=== PATIENT | female | born 1970 | race Caucasian/White ===

== ENCOUNTER 2018-07-04 15:58 | Emergency (ER) | payer OTHER ==
--- NOTE | 2018-07-04 16:09 | PDOC ---
Attending Attestation - Resident Resident Name: Ernie Greenwood - ED Attending Attestation I have performed the following: I have examined & evaluated the patient, The case was reviewed & discussed with the resident, I agree w/resident's findings & plan, Exceptions are as noted - HPI HPI: 47 yo F presents with R foot pain. She states she was outside walking in 2 inch heels, rolled her ankle as she slipped on something in the street. Initially she was able to walk on it, but subsequently developed pain and swelling, now is having difficulty walking. No weakness, numbness. No other injuries. - Physicial Exam PE: GENERAL: Awake, alert, and fully oriented, in no acute distress HEAD: No signs of trauma EYES: PERRLA, EOMI, sclera anicteric, conjunctiva clear ENT: Auricles normal inspection, hearing grossly normal, nares patent, oropharynx clear without exudates. Moist mucosa NECK: Normal ROM, supple, no lymphadenopathy, JVD, or masses LUNGS: Breath sounds equal, clear to auscultation bilaterally. No wheezes, and no crackles HEART: Regular rate and rhythm, normal S1 and S2, no murmurs, rubs or gallops ABDOMEN: Soft, nontender, normoactive bowel sounds. No guarding, no rebound. No masses EXTREMITIES: R foot with tenderness over the proximal 5th metatarsal as well as to the instep. +Swelling to distal fibula and anterior ankle joint. No deformity. Remainder of extremities with normal range of motion, no edema. No clubbing or cyanosis. No cords, erythema, or tenderness NEUROLOGICAL: Cranial nerves II through XII grossly intact. Normal speech. Motor and sensation intact. +Antalgic gait. SKIN: Warm, Dry, normal turgor, no rashes or lesions noted. - Medical Decision Making Will obtain XR to r/o 5th metatarsal fx, ankle fx.
[2018-07-04] MEDS ORDERED: IBUPROFEN 400 MG TABLET (FP) PO ONE ×2 (16:13→16:18)
[2018-07-04 16:16] VITALS: BP 123/83; PULSE 91; TEMP 98.3; BMI 16.6
--- NOTE | 2018-07-04 16:22 | PDOC ---
History of Present Illness <Monique Arceo - Last Filed: 07/04/18 17:28> - General History Source: Patient Exam Limitations: No Limitations - History of Present Illness Initial Comments: 07/04/18 16:17 Patient is a 47F with no significant medical history here today complaining of a foot pain after a mechanical trip in a 2 inch heel today. Patient reports being able to walk initially after the event, but was unable to walk after sitting for 45 minutes. <Ernie Greenwood - Last Filed: 07/04/18 17:32> - General Chief Complaint: Injury Stated Complaint: INJURED RIGHT ANKLE/FOOT Time Seen by Provider: 07/04/18 16:00 Past History <Monique Arceo - Last Filed: 07/04/18 17:28> - Past Medical History COPD: No Other medical history: DENIES - Suicide/Smoking/Psychosocial Hx Smoking History: Never smoked Information on smoking cessation initiated: No Hx Alcohol Use: No Drug/Substance Use Hx: No Substance Use Type: None <Ernie Greenwood - Last Filed: 07/04/18 17:32> - Past Medical History Allergies/Adverse Reactions: Allergies Allergy/AdvReac Type Severity Reaction Status Date / Time No Known Allergies Allergy Unverified 07/04/18 15:59 Home Medications: Ambulatory Orders NK [No Known Home Medication] 07/04/18 Review of Systems - Review of Systems Comments:: 07/04/18 16:17 GENERAL/CONSTITUTIONAL: No fever or chills. No weakness. CARDIOVASCULAR: No chest pain or shortness of breath RESPIRATORY: No cough, wheezing, or hemoptysis. GASTROINTESTINAL: No nausea, vomiting, diarrhea or constipation. GENITOURINARY: No dysuria, frequency, or change in urination. MUSCULOSKELETAL: +right foot pain. No neck or back pain. SKIN: No rash NEUROLOGIC: No headache, vertigo, loss of consciousness, or change in strength/ sensation. <Ernie Greenwood - Last Filed: 07/04/18 17:32> *Physical Exam - Vital Signs Last Vital Signs Temp Pulse Resp BP Pulse Ox 98.3 F 91 H 16 123/83 100 07/04/18 15:59 07/04/18 15:59 07/04/18 15:59 07/04/18 15:59 07/04/18 15:59 <Monique Arceo - Last Filed: 07/04/18 17:28> - Vital Signs Last Vital Signs Temp Pulse Resp BP Pulse Ox 98.3 F 91 H 16 123/83 100 07/04/18 15:59 07/04/18 15:59 07/04/18 15:59 07/04/18 15:59 07/04/18 15:59 - Physical Exam Comments: 07/04/18 16:21 GENERAL: Awake, alert, and fully oriented, in no acute distress R FOOT: Some swelling on lateral aspect of proximal foot, point tenderness over 5th metatarsal. No tenderness on lateral or medial malleolus. Neurovascularly intact in all digits. HEAD: No signs of trauma, normocephalic, atraumatic EYES: PERRLA, EOMI, sclera anicteric, conjunctiva clear ENT: Auricles normal inspection, hearing grossly normal, nares patent, oropharynx clear without exudates. Moist mucosa NECK: Normal ROM, supple, no lymphadenopathy, JVD, or masses LUNGS: No distress, speaks full sentences, clear to auscultation bilaterally HEART: Regular rate and rhythm, normal S1 and S2, no murmurs, rubs or gallops, peripheral pulses normal and equal bilaterally. NEUROLOGICAL: Cranial nerves II through XII grossly intact. Normal speech, normal gait, no focal sensorimotor deficits SKIN: Warm, Dry, normal turgor, no rashes or lesions noted. <Ernie Greenwood - Last Filed: 07/04/18 17:32> Procedures - Splinting Splint Location: Right: Ankle Pre-Made Type: aircast <Monique Arceo - Last Filed: 07/04/18 17:28> ED Treatment Course - Medications Given in the ED: ED Medications Discontinued Medications Generic Name Dose Route Start Last Admin Trade Name Freq PRN Reason Stop Dose Admin Ibuprofen 400 mg 07/04/18 16:13 07/04/18 16:20 Motrin - PO 07/04/18 16:14 400 mg ONCE ONE Administration <Monique Arceo - Last Filed: 07/04/18 17:28> - RADIOLOGY Radiology Studies Ordered: Category Date Time Status ANKLE & FOOT-RIGHT* [RAD] Stat Radiology 07/04/18 16:09 Ordered <Ernie Greenwood - Last Filed: 07/04/18 17:32> Medical Decision Making - Medical Decision Making 07/04/18 17:29 Pt crutch trained. <Monique Arceo - Last Filed: 07/04/18 17:28> - Medical Decision Making 07/04/18 16:22 Patient is 47F here today with foot pain after mechanical fall. Vital signs normal and stable. Point tenderness over 5th metatarsal, will evaluate with x- ray. 07/04/18 17:31 x-rays negative, placed in aircast, given crutches, trained. X-rays negative. Discharged home with instructions to follow up with ortho if pain does not improve. <Ernie Greenwood - Last Filed: 07/04/18 17:32> *DC/Admit/Observation/Transfer - Discharge Dispostion Decision to Admit order: No <Monique Arceo - Last Filed: 07/04/18 17:28> - Discharge Dispostion Decision to Admit order: No <Ernie Greenwood - Last Filed: 07/04/18 17:32> Diagnosis at time of Disposition: Ankle sprain Qualifiers: Encounter type: initial encounter Involved ligament of ankle: unspecified ligament Laterality: right Qualified Code(s): S93.401A - Sprain of unspecified ligament of right ankle, initial encounter - Discharge Dispostion Disposition: HOME Condition at time of disposition: Stable - Patient Instructions Printed Discharge Instructions: DI for Ankle Sprain
== END 2018-07-04 17:33 | disposition home or self-care (01) ==
LOC: FER 15:58
DX: S93.401A Sprain of unspecified ligament of right ankle, initial encounter (principal); X58.XXXA Exposure to other specified factors, initial encounter; Y93.89 Activity, other specified; Y92.9 Unspecified place or not applicable
CPT/HCPCS: 73610-TC-RT-FY; 73630-TC-RT-FY; 99282-25